=== PATIENT | male | born 1980 | race American Indian/Alaskan Native ===

== ENCOUNTER 2017-06-30 02:55 | Emergency (ER) | payer SELFPAY ==
[2017-06-30 03:07] VITALS: BP 128/87
== END 2017-06-30 03:30 | disposition left against medical advice (07) ==
LOC: EDBD → ED 02:55
DX: R06.02 Shortness of breath (principal); Z53.21 Procedure and treatment not carried out due to patient leaving prior to being seen by health care provider
CPT/HCPCS: 93005; 93010